=== PATIENT | male | born 1980 | race Caucasian/White ===

== ENCOUNTER 2023-09-20 10:08 | Emergency (ER) | payer BC ==
[~2023-09-20] VITALS: Ht 182.9 cm; Wt 90.7 kg
--- NOTE | 2023-09-20 10:11 | NUR ---
SE RECIBE PACIENTE ALERTA Y ORIENTADAO X3 REFIERE ESTAR PRESENTANDO DESDE QUE SE LEVANTO HOY FIEBRE, DOLOR MUSCULAR, DOLOR DE GARGANTA, TOS PRODUCTIVA, CONGESTION NASAL.
--- NOTE | 2023-09-20 10:16 | NUR ---
REFIERE TENER DEBILIDAD, POCO APETITO Y ESCALOFRIOS.
[2023-09-20] MEDS ORDERED: GUAIFEN/DEXTROMETHORPHAN/PE 10 ML BLIST.PACK PO ONE ×2 (10:45→10:54)
[2023-09-20] MEDS ORDERED: LEVALBUTEROL HCL 0.63 MG/3 ML SOLUTION IH ONE ×2 (10:45→11:07)
[2023-09-20] MEDS ORDERED: GUAIFENESIN/DEXTROMETHORPHAN 10ML BLIST.PACK PO ONE (10:46)
--- NOTE | 2023-09-20 11:04 | NUR ---
MASCULINO EVALUADO POR DR MULTANI. SE EDUCA A PACIENTE SOBRE ORDENES MEDICAS Y REFIERE ENTENDER. SE COLECTAN MUESTRAS DE LABORATORIO BAJO MEDIDAS ASEPTICAS. SE ADMINISTRA MEDICAMENTO [facility]. SE NOTIFICA X-RAY Y TERAPIA PENDIENTE.
[2023-09-20 11:10] LABS: HEMATOCRIT 40.6 % (39.0-48.0); MEAN CELL VOLUME 95.1 fL (80.0-100.00); MEAN CORPUSCULAR HEMOGLOBIN 32.9 pg (27.00-32.0); MEAN CORPUSCULAR HGB CONC 34.6 g/dl (32.0-36.0); RED BLOOD COUNT 4.27 M/uL (4.00-6.00); RED CELL DISTRIBUTION WIDTH 13.3 % (11.5-14.5)
[2023-09-20 11:12] LABS: PLATELET COUNT 93 K/uL (150-450)
[2023-09-20 11:54] LABS: ALBUMIN 3.9 gm/dL (3.4-5.0); BILIRUBIN TOTAL 0.96 mg/dL (0.3-1.2); CALCIUM 8.7 mg/dL (8.5-10.1); CREATININE SERUM 1.06 mg/dL (0.70-1.30); GFR 76.25; GLOBULINA 3.1 G/DL (2.4-3.5); POTASSIUM 3.78 mEq/L (3.5-5.1)
[2023-09-20] MEDS ORDERED: PROMETHAZINE HCL 25 MG/ML AMPUL IV ONE (13:00)
[2023-09-20] MEDS ORDERED: 0.9 % SODIUM CHLORIDE 1,000 ML IV SCH ×2 (13:15→18:00)
[2023-09-20] MEDS ORDERED: PROMETHAZINE HCL 25 MG/ML AMPUL ONE (13:28)
[2023-09-20] MEDS ORDERED: ACETAMINOPHEN 500 MG GEL..CAP PO ONE ×2 (13:48→14:00)
--- NOTE | 2023-09-20 13:52 | NUR ---
MASCULINO ALERTA Y ORIENTADO X3 REFIERE SENTIRSE ANSIOSO, NERVIOSO Y FRIOLENTO. SE CONSULTA A DR RANGEL HELMS ORDENA MUESTRAS DE LABORATORIO, IVF'S Y MEDICAMENTOS. SE EJECUTAN ORDENES MEDICAS. SE MIDEN S/V Y SE REALIZA EKG EL CUAL ES EVALUADO POR MD. SE CANALIZA A PACIENTE Y SE ADMINISTRAN MEDICAMENTOS [facility]. SE UBICA PACIENTE EN AREA DE OBSERVACION.
[2023-09-20 14:01] LABS: ALT/SGPT 29 U/L (12-78); AST/SGOT 57 U/L (15-37); LDH 218 U/L (87-241); PHOSPHOKINASE CREATININE 284 U/L (39-308)
[2023-09-20 14:01] LABS: INR 1.03; PARTIAL THROMBOPLASTIN TIME 26.7 SECONDS (22.0-34.0); PROTHROMBIN TIME 10.8 SECONDS (9.0-11.5)
[2023-09-20] MEDS ORDERED: LORazepam 2 MG/ML VIAL IV PUSH ONE (15:45)
--- NOTE | 2023-09-20 15:58 | NUR ---
SE RECIBE PTE ALERTA Y ORIENTADO X3 EN ANGELO CON BARANDAS ELEVADAS POR PREVENCION. EL MISMO SE OBSERVA CON CANALIZACON PATENTE #18 CON H/L EN BRAZO LUIS POR DONDE BAJA IVFLUIDS [facility]. SE REALIZAN VITALES Y SE DOCUMENTAN EN SISTEMA. SE CRUZ PTE EN ESPERA DE RE-EVALUACION MEDICA.
[2023-09-20] MEDS ORDERED: LORazepam 2 MG/ML VIAL ONE (16:04)
[2023-09-20 17:04] LABS: HEMATOCRIT 40.4 % (39.0-48.0); HEMOGLOBIN 13.8 g/dL (13-16.00); MEAN CORPUSCULAR HEMOGLOBIN 32.5 pg (27.00-32.0); MEAN CORPUSCULAR HGB CONC 34.2 g/dl (32.0-36.0); RED BLOOD COUNT 4.25 M/uL (4.00-6.00); RED CELL DISTRIBUTION WIDTH 13.7 % (11.5-14.5)
[2023-09-20 17:05] LABS: PLATELET COUNT 107 K/uL (150-450)
[2023-09-20] MEDS ORDERED: DILTIAZEM HCL 25 MG/5 ML VIAL IV ONE ×2 (17:55→18:00)
[2023-09-20] MEDS ORDERED: DILTIAZEM HCL 125 MG in 0.9 % SODIUM CHLORIDE 100 ML IV SCH (18:00)
[2023-09-20] MEDS ORDERED: GUAIFEN/DEXTROMETHORPHAN/PE 10 ML BLIST.PACK PO SCH (18:00)
[2023-09-20] MEDS ORDERED: ONDANSETRON HCL 4 MG in 0.9 % SODIUM CHLORIDE 50 ML IV PRN (18:00)
[2023-09-20] MEDS ORDERED: ACETAMINOPHEN 500 MG GEL..CAP PO PRN (18:00)
[2023-09-20] MEDS ORDERED: CEFTRIAXONE SODIUM 2,000 MG in 0.9 % SODIUM CHLORIDE 100 ML IV SCH (18:02)
[2023-09-20] MEDS ORDERED: CEFTRIAXONE SODIUM 2,000 MG VIAL ONE (18:05)
--- NOTE | 2023-09-20 18:12 | NUR ---
SE REALIZAN VITALES ANTES DE COLOCAR CARDIZEM IVPUSH [facility] MEDICA PULSO 140 IRREGULAR. SE COLOCA MEDICACION [facility] MEDICA Y SE OBSERVA PULSO EN 97 ESTABLE. SE CRUZ PTE CONECTADO A OXIMETRIA DE PULSO. CANULA NASAL A 3 LITROS Y SATURACION 96%. PACIENTE ESTABLE LUEGO DE MEDICACION.
[2023-09-20] MEDS ORDERED: FAMOTIDINE/PF 20 MG in 0.9 % SODIUM CHLORIDE 8 ML IV PUSH SCH (21:00)
[2023-09-21] MEDS ORDERED: FAMOTIDINE/PF 20 MG/2 ML VIAL ONE (11:29)
== END 2023-09-20 19:00 | disposition left against medical advice (07) ==
LOC: ER 10:09 → ICU-2 18:31 → ER 18:31 → ICU-2 19:00 → ER 19:00
PROVIDERS: Emergency Medicine
DX: N39.0 Urinary tract infection, site not specified (principal); G47.33 Obstructive sleep apnea (adult) (pediatric); F41.0 Panic disorder [episodic paroxysmal anxiety]; Z20.822 Contact with and (suspected) exposure to COVID-19; I48.91 Unspecified atrial fibrillation

== ENCOUNTER 2023-09-20 22:52 | Inpatient (IN) | payer BC ==
[~2023-09-20] VITALS: Ht 180.3 cm; Wt 86.2 kg
[2023-09-21] MEDS ORDERED: ACETAMINOPHEN 500 MG GEL..CAP PO ONE (00:46)
[2023-09-21 01:28] LABS: ALBUMIN 3.4 gm/dL (3.4-5.0); BILIRUBIN TOTAL 0.48 mg/dL (0.3-1.2); CALCIUM 8.4 mg/dL (8.5-10.1); CREATININE SERUM 0.92 mg/dL (0.70-1.30); GFR 89.79; POTASSIUM 3.47 mEq/L (3.5-5.1); TOTAL PROTEIN 6.4 gm/dL (6.4-8.2)
[2023-09-21 01:39] LABS: HEMATOCRIT 39.4 % (39.0-48.0); HEMOGLOBIN 13.7 g/dL (13-16.00); MEAN CORPUSCULAR HEMOGLOBIN 33.8 pg (27.00-32.0); MEAN CORPUSCULAR HGB CONC 34.9 g/dl (32.0-36.0); RED BLOOD COUNT 4.06 M/uL (4.00-6.00); RED CELL DISTRIBUTION WIDTH 13.3 % (11.5-14.5)
[2023-09-21 01:43] LABS: PLATELET COUNT 100 K/uL (150-450)
[2023-09-21] MEDS ORDERED: FAMOTIDINE/PF 20 MG in 0.9 % SODIUM CHLORIDE 100 ML IV SCH (10:41)
[2023-09-21] MEDS ORDERED: CEFTRIAXONE SODIUM 2,000 MG in 0.9 % SODIUM CHLORIDE 100 ML IV SCH (10:42)
[2023-09-21] MEDS ORDERED: DILTIAZEM HCL 125 MG in 0.9 % SODIUM CHLORIDE 125 ML IV SCH (10:45)
[2023-09-21] MEDS ORDERED: 0.9 % SODIUM CHLORIDE 1,000 ML IV SCH (10:45)
[2023-09-21] MEDS ORDERED: ONDANSETRON HCL 4 MG in 0.9 % SODIUM CHLORIDE 50 ML IV PRN (10:45)
[2023-09-21] MEDS ORDERED: LEVALBUTEROL HCL 0.63 MG/3 ML SOLUTION IH ONE (12:00)
[2023-09-21] MEDS ORDERED: ACETAMINOPHEN 325 MG TABLET PO PRN (12:00)
[2023-09-21] MEDS ORDERED: ENALAPRILAT DIHYDRATE 1.25 MG/ML VIAL IV PRN (12:00)
[2023-09-21 12:20] LABS: TSH 0.647 uIU/mL (0.358-3.74)
[2023-09-21] MEDS ORDERED: FAMOTIDINE/PF 20 MG/2 ML VIAL ONE (16:16)
[2023-09-22] MEDS ORDERED: METOPROLOL TARTRATE 25 MG TABLET PO SCH (09:00)
[2023-09-22] MEDS ORDERED: RIVAROXABAN 20 MG TABLET PO SCH (09:00)
== END 2023-09-22 15:17 | disposition home or self-care (01) | DRG 310 ==
LOC: ER 22:52 → SEC-K 09-21 10:44 → MEDI 09-21 10:44 → SEC-K 09-21 11:10 → MEDI 09-21 17:19
PROVIDERS: Emergency Medicine; General Practice; ADMIT Internal Medicine; ATTEND Internal Medicine
PROC: B246ZZZ Ultrasonography of Right and Left Heart (ICD-10-PCS; principal; 2023-09-21)
PROC: 4A12X4Z Monitoring of Cardiac Electrical Activity, External Approach (ICD-10-PCS; 2023-09-21)
DX: I48.91 Unspecified atrial fibrillation (principal); Z20.822 Contact with and (suspected) exposure to COVID-19